=== PATIENT | male | born 1995 | race Caucasian/White ===

== ENCOUNTER 2019-12-19 12:13 | Emergency (ER) | payer BC, OTHER ==
[2019-12-19] MEDS ORDERED: ASPIRIN 81 MG CHEWABLE TABLET ONE (12:50)
--- NOTE | 2019-12-19 13:04 | RAD REPORT ---
EXAM DESCRIPTION: Felisha Single View12/19/2019 12:57 pm CLINICAL HISTORY: Chest pain COMPARISON: 2015 FINDINGS: The lungs appear clear of acute infiltrate. The heart is normal size IMPRESSION: No acute abnormalities displayed
--- NOTE | 2019-12-19 13:04 | ER ---
Nurse's Notes [facility] [place] Name: Valentín Parmar Age: 24 yrs Sex: Male : 1995 Arrival Date: 12/19/2019 Time: 12:19 Bed 6 Private MD: Diagnosis: Other chest pain Presentation: 12/18 12:25 Chief complaint: Sent from outpatient clinic for abnormal EKG and intermittent hb substernal chest pain x 2 days. Denies SOB/nausea. Coronavirus screen: At this time, the client does not indicate any symptoms associated with coronavirus-19. Ebola Screen: No symptoms or risks identified at this time. Initial Sepsis Screen: Does the patient meet any 2 criteria? No. Patient's initial sepsis screen is negative. Does the patient have a suspected source of infection? No. Patient's initial sepsis screen is negative. Risk Assessment: Do you want to hurt yourself or someone else? Patient reports no desire to harm self or others. Onset of symptoms was December 17, 2019. 12:25 Method Of Arrival: Ambulatory hb 12:25 Acuity: KENDALL 3 hb Triage Assessment: 13:00 General: Appears in no apparent distress. Behavior is calm, cooperative. iw Historical: - Allergies: 12:27 No Known Allergies; hb - Home Meds: 12:27 None [Active]; hb - PMHx: 12:27 Migraines; hb - PSHx: 12:27 None; hb - Immunization history:: Adult Immunizations up to date. - Social history:: Smoking status: Patient reports the use of cigarette tobacco products, denies chronic smoking, but will smoke occasionally. Screenin:28 Abuse screen: Denies threats or abuse. Denies injuries from another. Nutritional iw screening: No deficits noted. Tuberculosis screening: No symptoms or risk factors identified. Fall Risk None identified. Assessment: 13:00 General: Appears in no apparent distress. Behavior is calm, cooperative. Pain: iw Complains of pain in chest Pain does not radiate. Pain began 2-3 days ago. Is intermittent. Neuro: Level of Consciousness is awake, alert, obeys commands, Oriented to person, place, time, situation, Moves all extremities. Full function. Cardiovascular: Patient's skin is warm and dry. Respiratory: Respiratory effort is even, unlabored, Respiratory pattern is regular, symmetrical. Derm: Skin is intact, is healthy with good turgor. Musculoskeletal: Range of motion: intact in all extremities. Vital Signs: 12:25 BP 143 / 80; Pulse 79; Resp 16; Temp 97.7; Pulse Ox 100% on R/A; Weight 108.86 kg; hb Height 5 ft. 11 in. (180.34 cm); Pain 0/10; 12:25 Body Mass Index 33.47 (108.86 kg, 180.34 cm) hb ED Course: 12:19 Patient arrived in ED. mr 12:20 Boogie Archibald MD is Attending Physician. cecy 12:26 Triage completed. hb 12:27 Arm band placed on. 12:28 Prudence Morgan RN is Primary Nurse. iw 12:47 EKG done, by ED staff, reviewed by Boogei Archibald MD. [facility] 12:57 Chest Single View XRAY In Process Unspecified. EDMS 13:00 Patient has correct armband on for positive identification. Pulse ox on. iw 13:04 Monty Strickland MD is Referral Physician. [facility] 13:04 Diane Lunsford MD is Referral Physician. [facility] 13:28 No provider procedures requiring assistance completed. Patient did not have IV access iw during this emergency room visit. Patient maintains SpO2 saturation greater than 95% on room air. Administered Medications: 12:49 Drug: Aspirin 162 mg Route: PO; iw Outcome: 13:04 Discharge ordered by . cecy 13:28 Discharged to home ambulatory. iw 13:28 Condition: good 13:28 Discharge instructions given to patient, Instructed on discharge instructions, follow up and referral plans. Demonstrated understanding of instructions, follow-up care. 13:29 Patient left the ED. iw Signatures: Dispatcher [employer] Boogie Lopez MD MD cha Rivera, Mary mr Prudence Morgan, RN VANITA June Cardenas RN RN Liseth Miguel [facility]
--- NOTE | 2019-12-19 13:04 | EDPHYS ---
Physician Documentation [facility] Name: Valentín Parmar Age: 24 yrs Sex: Male : 1995 Arrival Date: 12/19/2019 Time: 12:19 Bed 6 Private MD: ED Physician Boogie Archibald HPI: 12/18 12:33 This 24 yrs old Male presents to ER via Ambulatory with complaints of Chest cecy Pain, Abnormal EKG. 12:33 The patient or guardian reports chest pain that is located primarily in the anterior cecy chest wall, bilaterally. The pain does not radiate. Associated signs and symptoms: The patient has no apparent associated signs or symptoms. The chest pain is described as twinge like pain, not exertional. Duration: The patient or guardian reports multiple episodes, with no pattern. Modifying factors: The symptoms are alleviated by nothing. the symptoms are aggravated by nothing. Severity of pain: At its worst the pain was mild in the emergency department the pain has resolved. The patient has experienced similar episodes in the past, multiple times, years. Historical: - Allergies: 12:27 No Known Allergies; hb - Home Meds: 12:27 None [Active]; hb - PMHx: 12:27 Migraines; hb - PSHx: 12:27 None; hb - Immunization history:: Adult Immunizations up to date. - Social history:: Smoking status: Patient reports the use of cigarette tobacco products, denies chronic smoking, but will smoke occasionally. ROS: 12:36 Constitutional: Negative for fever, chills, and weight loss, Eyes: Negative for injury, cecy pain, redness, and discharge, ENT: Negative for injury, pain, and discharge, Neck: Negative for injury, pain, and swelling, Respiratory: Negative for shortness of breath, cough, wheezing, and pleuritic chest pain, Abdomen/GI: Negative for abdominal pain, nausea, vomiting, diarrhea, and constipation, Back: Negative for injury and pain, : Negative for injury, bleeding, discharge, and swelling, MS/Extremity: Negative for injury and deformity, Skin: Negative for injury, rash, and discoloration, Neuro: Negative for headache, weakness, numbness, tingling, and seizure, Psych: Negative for depression, anxiety, suicide ideation, homicidal ideation, and hallucinations, Allergy/Immunology: Negative for hives, rash, and allergies, Endocrine: Negative for neck swelling, polydipsia, polyuria, polyphagia, and marked weight changes, Hematologic/Lymphatic: Negative for swollen nodes, abnormal bleeding, and unusual bruising. 12:36 Cardiovascular: Positive for chest pain, of the chest. Exam: 12:36 Constitutional: This is a well developed, well nourished patient who is awake, alert, cecy and in no acute distress. Head/Face: Normocephalic, atraumatic. Eyes: Pupils equal round and reactive to light, extra-ocular motions intact. Lids and lashes normal. Conjunctiva and sclera are non-icteric and not injected. Cornea within normal limits. Periorbital areas with no swelling, redness, or edema. ENT: Nares patent. No nasal discharge, no septal abnormalities noted. Tympanic membranes are normal and external auditory canals are clear. Oropharynx with no redness, swelling, or masses, exudates, or evidence of obstruction, uvula midline. Mucous membranes moist. Neck: Trachea midline, no thyromegaly or masses palpated, and no cervical lymphadenopathy. Supple, full range of motion without nuchal rigidity, or vertebral point tenderness. No Meningismus. Chest/axilla: Normal chest wall appearance and motion. Nontender with no deformity. No lesions are appreciated. Cardiovascular: Regular rate and rhythm with a normal S1 and S2. No gallops, murmurs, or rubs. Normal PMI, no JVD. No pulse deficits. Respiratory: Lungs have equal breath sounds bilaterally, clear to auscultation and percussion. No rales, rhonchi or wheezes noted. No increased work of breathing, no retractions or nasal flaring. Abdomen/GI: Soft, non-tender, with normal bowel sounds. No distension or tympany. No guarding or rebound. No evidence of tenderness throughout. Back: No spinal tenderness. No costovertebral tenderness. Full range of motion. Male : Normal genitalia with no discharge or lesions. Skin: Warm, dry with normal turgor. Normal color with no rashes, no lesions, and no evidence of cellulitis. MS/ Extremity: Pulses equal, no cyanosis. Neurovascular intact. Full, normal range of motion. Neuro: Awake and alert, GCS 15, oriented to person, place, time, and situation. Cranial nerves II-XII grossly intact. Motor strength 5/5 in all extremities. Sensory grossly intact. Cerebellar exam normal. Normal gait. Psych: Awake, alert, with orientation to person, place and time. Behavior, mood, and affect are within normal limits. 12:47 ECG was reviewed by the Attending Physician. [facility] 13:03 Cardiovascular: Rate: normal, Rhythm: regular, Pulses: no pulse deficits are cecy appreciated, Heart sounds: normal, normal S1and S2, no S3 or S4, no murmur, no rub, no gallop, Edema: is not appreciated, JVD: is not appreciated. 13:03 Musculoskeletal/extremity: DVT Exam: No signs of deep vein thrombosis. no pain, no swelling, no tenderness, negative Homans' sign noted on exam, no appreciated bluish discoloration, no erythema, no increased warmth. Vital Signs: 12:25 BP 143 / 80; Pulse 79; Resp 16; Temp 97.7; Pulse Ox 100% on R/A; Weight 108.86 kg; hb Height 5 ft. 11 in. (180.34 cm); Pain 0/10; 12:25 Body Mass Index 33.47 (108.86 kg, 180.34 cm) hb MDM: 12:28 Patient medically screened. [facility] 12:37 Data reviewed: vital signs, nurses notes, EKG, radiologic studies, CT scan, plain films.[facility] 12:37 Differential diagnosis: abnormal EKG, chest wall pain, herpes zoster, stable angina. [facility] HEART Score: ECG: Normal (0), Age: < or = 45 years (0), Risk Factors: No Risk Factors Known (0). The patient's deep vein thrombosis risk score was calculated as follows: Total Score: 0. This patient was found to be at low risk for a deep vein thrombosis by using the Well's assessment criteria. The patient's pulmonary embolism risk score was calculated as follows: Total Score: 0-2 points. This patient was found to be at low risk for a pulmonary embolism by using the Well's assessment criteria. YOEL Risk Score: TOTAL SCORE = 0. 12/18 12:33 Order name: Chest Single View XRAY [facility] 12/18 12:33 Order name: EKG; Complete Time: 12:34 [facility] 12/18 12:33 Order name: EKG - Nurse/Tech; Complete Time: 12:48 [facility] EC:47 Rate is 75 beats/min. Rhythm is regular. QRS Alkol is Normal. NM interval is normal. QRS cecy interval is normal. QT interval is normal. No Q waves. T waves are Normal. No ST changes noted. Clinical impression: Normal ECG and No evidence of ischemia. Interpreted by me. Reviewed by me. Administered Medications: 12:49 Drug: Aspirin 162 mg Route: PO; iw Disposition: 12/19/19 13:04 Discharged to Home. Impression: Other chest pain. - Condition is Stable. - Discharge Instructions: Nonspecific Chest Pain, Nonspecific Chest Pain, [id number], Aspirin and Your Heart. - Medication Reconciliation Form, Thank You Letter, Antibiotic Education, Prescription Opioid Use, Work release form form. - Follow up: Private Physician; When: 2 - 3 days; Reason: Recheck today's complaints, Continuance of care, Re-evaluation by your physician. Follow up: Monty Strickland; When: 2 - 3 days; Reason: Recheck today's complaints, Continuance of care, Re-evaluation by your physician. Follow up: Diane Lunsford; When: 2 - 3 days; Reason: Recheck today's complaints, Re-evaluation by your physician. - Problem is new. - Symptoms have improved. Signatures: Dispatcher [employer] EDMS Boogie Archibald MD MD cha Williams, Irene, RN RN June Mcdaniel RN RN Corrections: (The following items were deleted from the chart) 13:29 13:04 12/19/2019 13:04 Discharged to Home. Impression: Other chest pain. Condition is iw Stable. Discharge Instructions: Nonspecific Chest Pain, Nonspecific Chest Pain, [id number], Aspirin and Your Heart. Forms are Medication Reconciliation Form, Thank You Letter, Antibiotic Education, Prescription Opioid Use. Follow up: Private Physician; When: 2 - 3 days; Reason: Recheck today's complaints, Continuance of care, Re-evaluation by your physician. Follow up: Monty Strickland; When: 2 - 3 days; Reason: Recheck today's complaints, Continuance of care, Re-evaluation by your physician. Follow up: Diane Lunsford; When: 2 - 3 days; Reason: Recheck today's complaints, Re-evaluation by your physician. Problem is new. Symptoms have improved. cecy
[2019-12-19 13:34] VITALS: BP 143/80; TEMP 97.7; O2SAT 100
== END 2019-12-19 13:29 | disposition home or self-care (01) ==
LOC: ER 12:13
DX: R07.89 Other chest pain (principal); F17.210 Nicotine dependence, cigarettes, uncomplicated
CPT/HCPCS: 71045; 93005; 99284